=== PATIENT | female | born 1940 | race Caucasian/White ===

== ENCOUNTER 2016-11-04 07:49 | Emergency (ER) | payer OTHER ==
[~2016-11-04 07:49] MED LIST: MACROBID 100 M100 MG PO; PYRIDIUM200 M1 PO
[2016-11-04 07:58] VITALS: BP 124/59
[2016-11-04] MEDS ORDERED: LISINOPRIL5 M1 PO (08:16)
--- NOTE | 2016-11-04 08:20 | ED UPPER/LOWER EXTREMITY COMPL ---
History of Present Illness General Chief Complaint: Foot or Ankle Injury Stated Complaint: RIGHT FOOT PAIN Source: patient Exam Limitations: no limitations Vital Signs & Intake/Output Vital Signs & Intake/Output Vital Signs Date Time Temp Pulse Resp B/P B/P Pulse O2 O2 Flow FiO2 Mean Ox Delivery Rate 11/04 0758 97.8 70 20 124/59 97 Room Air Allergies Coded Allergies: NO KNOWN ALLERGIES (01/26/12) Reconcile Medications Lisinopril 5 MG TABLET 1 TAB PO DAILY BP (Reported) Nitrofurantoin Monohyd/M-Cryst (Macrobid 100 MG Capsule) 100 MG CAPSULE 1 CAP PO BID uti with food Phenazopyridine HCl (Pyridium) 200 MG TABLET 1 TAB PO TID dysuria Triage Note: Pt presents to ER c/o of right foot pain x 2 weeks. Pt states she was just walking and rolled her ankle. Pt states bruising and swelling has improved but she still has pain. Pt refusing pain meds at triage Triage Nurses Notes Reviewed? yes HPI: Patient presents for evaluation of right foot pain that began gradually over the past 5 days. Patient is describing mild to moderate burning pain across the lateral aspect of the right foot. Patient states that she "rolled" her right ankle 2 weeks ago. The pain is constant and gets worse with ambulation. She has not tried any medications for it to this point. Patient also noted bruising of the third fourth and possibly the fifth toe. Past History Travel History Traveled to [place] past 21 day No Medical History Any Pertinent Medical History? see below for history Cardiovascular: hypertension Gastrointestinal: Crohn's disease Surgical History Surgical History: non-contributory Psychosocial History Who do you live with Son What is your primary language Malay Tobacco Use: Never used Family History Hx Contributory? No Review of Systems Review of Systems Constitutional: Reports: no symptoms. EENTM: Reports: no symptoms. Respiratory: Reports: no symptoms. Cardiovascular: Reports: no symptoms. Gastrointestinal/Abdominal: Reports: no symptoms. Genitourinary: Reports: no symptoms. Musculoskeletal: Reports: see HPI. Skin: Reports: no symptoms. Neurological/Psychological: Reports: no symptoms. Hematologic/Endocrine: Reports: no symptoms. Immunological: Reports: no symptoms. All Other Systems: Reviewed and Negative Physical Exam Physical Exam General Appearance: SEE BELOW Comments: Gen.: Well-nourished, well-developed, no acute respiratory distress. Head: Normocephalic, atraumatic. Eyes: Normal inspection bilaterally Ears: Normal inspection bilaterally Nose: Normal inspection, nasal cannula in place Throat/mouth : Moist mucosa Neck: Supple, full range of motion, no goiter Heart: Regular rate and rhythm Lungs: Quiet respirations Back: Normal range of motion Extremities: Right foot: Bruising of the second through fourth toes but otherwise unremarkable exam. Neurologic: Cranial nerves grossly intact, speech is clear Skin: warm and dry Psychiatric: Calm, cooperative, no apparent delusions or hallucinations Progress Differential Diagnosis: contusion, dislocation, fracture, sprain Plan of Care: Orders Procedure Date/time Status XRY-FOOT COMPLETE, RIGHT 11/04 757 Active Diagnostic Imaging: Discussed w/RAD: Radiology Read. Radiology Impression: PATIENT: ABHILASH ZHANG PRESENT AGE: 76 PATIENT ACCOUNT NO: [id number] : 42 LOCATION: [facility] ORDERING PHYSICIAN: MCKINLEY CERRATO MD SERVICE DATE: 11/04/16 EXAM TYPE: RAD - XRY-FOOT COMPLETE, R EXAMINATION: XR FOOT, RIGHT CLINICAL INFORMATION: Right foot pain. Evaluate for fracture. COMPARISON: None TECHNIQUE: AP, lateral, and oblique views of the right foot. FINDINGS: Bone mineral density is diffusely decreased without evidence of fracture or dislocation. There is a pes planus deformity. No focal osseous lesions are seen. There is a mild metatarsus primus varus with hallux valgus deformity and a prominent bunion. There is mild first MTP joint space narrowing with small marginal osteophyte formation dorsally. There is a small plantar calcaneal spur. IMPRESSION: Osteopenia, no fracture or dislocation is seen. DICTATED BY: LONNIE NEGRETE MD DATE/TIME DICTATED:819 [employer]ER:JEANNINE DATE/TIME TRANSCRIBED:11/04/16819 CONFIDENTIAL, DO NOT COPY WITHOUT APPROPRIATE AUTHORIZATION. <Electronically signed in Other Vendor System> SIGNED BY: LONNIE NEGRETE MD 11/04/16846 Departure Departure Disposition: HOME OR SELF CARE Condition: Stable Clinical Impression Primary Impression: Foot sprain Qualifiers: Encounter type: initial encounter Laterality: right Qualified Code: S93.601A - Unspecified sprain of right foot, initial encounter Secondary Impressions: Ankle sprain Qualifiers: Encounter type: initial encounter Involved ligament of ankle: unspecified ligament Laterality: right Qualified Code: S93.401A - Sprain of unspecified ligament of right ankle, initial encounter Referrals: LEEANNA LEMOS,GURDEEP Marshall (PCP/Family) Additional Instructions: Ibuprofen as needed for pain. Orthopedic shoe as needed. Follow-up with your primary care doctor for reevaluation on Tuesday. Return if any concerns or sudden worsening. Please note that there might be incidental findings in your evaluation that are unrelated to the current emergency department visit. Please notify your primary care doctor about this emergency department visit in order to obtain and review all of the testing performed so that these incidental findings can be monitored as needed. If you had an x-ray performed, please understand that some fractures may not be seen on the initial set of x-rays. If your symptoms persist you might need a repeat set of x-rays to check for such a fracture. If you had a laceration evaluated, please understand that foreign bodies such as glass or wood may not be visible to the naked eye or on plain x-rays. If the wound becomes red, swollen, increasingly more painful or if there is any drainage from the wound, please have it reevaluated by a physician for the possibility of a retained foreign body. Thank you for choosing the [facility] Emergency Department for your care. It was a pleasure to serve you today. Mckinley Cerrato M.D. [facility] Departure Forms: Customer Survey General Discharge Information
--- NOTE | 2016-11-04 08:47 | RADIOLOGY REPORT ---
EXAMINATION: XR FOOT, RIGHT CLINICAL INFORMATION: Right foot pain. Evaluate for fracture. COMPARISON: None TECHNIQUE: AP, lateral, and oblique views of the right foot. FINDINGS: Bone mineral density is diffusely decreased without evidence of fracture or dislocation. There is a pes planus deformity. No focal osseous lesions are seen. There is a mild metatarsus primus varus with hallux valgus deformity and a prominent bunion. There is mild first MTP joint space narrowing with small marginal osteophyte formation dorsally. There is a small plantar calcaneal spur. IMPRESSION: Osteopenia, no fracture or dislocation is seen.
== END 2016-11-04 09:37 ==
LOC: ERH 07:49
DX: S93.601A Unspecified sprain of right foot, initial encounter (principal); S93.401A Sprain of unspecified ligament of right ankle, initial encounter; X50.9XXA Other and unspecified overexertion or strenuous movements or postures, initial encounter; Y93.9 Activity, unspecified; Y92.9 Unspecified place or not applicable
CPT/HCPCS: 73630-RT